=== PATIENT | female | born 1960 | race Caucasian/White ===

== ENCOUNTER 2017-01-03 14:22 | Observation (INO) ==
--- NOTE | 2017-01-03 14:56 | Emergency Department Note ---
Disposition Clinical Impression: Chest pain at rest, Unstable angina Disposition: Admitted As Inpatient Condition: Good Time of Disposition: 18:21 Chest Pain HPI - General Chief Complaint: ED Chest Pain Stated Complaint: Chest Pain Time Seen by Provider: 01/03/17 14:36 Source: patient Limitations: no limitations Vital Signs Reviewed: Yes Nursing Notes Reviewed: Yes - History of Present Illness HPI Narrative: Patient is a 56-year-old female with no prior cardiac history but an extensive family history for cardiac events on her father's side and presents today with chest pain 5/10 pressure-like with radiation up to the anterior portion of her throat bilaterally and intermittently. Patient states worsens with activity but now at rest. The patient states the stress test in the past years ago. Patient does not currently see a epidemiologist oriented she on any medications for hypertension or hyperlipidemia. Patient states she is a smoker of one pack a day reduced from 2 packs a day. Severity scale (1-10): 4 - Related Data Home Medications Medication Instructions Recorded Confirmed Aspirin 324 mg PO QAM 01/03/17 01/03/17 Allergies Allergy/AdvReac Type Severity Reaction Status Date / Time No Known Allergies Allergy Verified 01/03/17 14:27 Review of Systems: Patient denies fever, chills, vomiting, diarrhea, All systems ED: reviewed and negative except as stated. Review of Systems: As Per HPI Chest Pain PMH - Past Medical History Medical history: Reports: no medical history Psychiatric history: Reports: no psych history RATOPRINTER history: Reports: bilateral tubal ligation - Social History Smoking Status: Current every day smoker Alcohol use: Reports: none Drug use: Reports: none Physical Exam Vital Signs Temperature 98.1 F 01/03/17 14:23 Pulse Rate 88 01/03/17 14:23 Respiratory Rate 18 01/03/17 14:23 Blood Pressure 163/82 01/03/17 14:23 O2 Sat by Pulse Oximetry 96 01/03/17 14:23 Temperature 98.0 F 01/03/17 18:38 Pulse Rate 76 01/03/17 18:38 Respiratory Rate 16 01/03/17 18:38 Blood Pressure 181/88 01/03/17 18:38 O2 Sat by Pulse Oximetry 100 01/03/17 18:38 Oxygen Delivery Oxygen Delivery Room Air -General Appearance: Patient is a 56-year-old female who is alert and oriented 3 and in no acute distress distress. Patient currently dressing and gown and heading down to chest x-ray. Patient chooses to walk. -Neurological exam: Cranial nerves II-12 intact, no focal deficits observed, strength equal 5/5 bilaterally in upper and lower extremities. Negative loss of sensation - Head Head exam: atraumatic, normocephalic, normal inspection - Eye Eye exam: Present: normal appearance, PERRL, EOMI, negative for scleral icterus negative for conjunctival pallor - ENT ENT exam: normal exam, normal oropharynx, mucous membranes moist - Neck Neck exam: Present: normal inspection, full ROM, trachea midline, negative JVD - Chest Chest inspection: Present: Patient has bilateral equal rise and fall of chest wall. Non-tender to palpation. - Respiratory Respiratory exam: Clear to auscultation bilaterally without wheezes rales or rhonchi Cardiovascular Cardiovascular exam: Present: regular rate, normal rhythm, normal heart sounds, without murmurs rubs or gallops. - Abdominal Exam Abdominal exam: Present: soft, nondistended, Non-Tender light and deep palpation in all quadrants. Bowel sounds normoactive throughout all 4 quadrants. Negative for hyper or hyperresonance. - Extremities Exam Extremities exam: Present: normal inspection, full ROM - Back Exam Back exam: Present: normal inspection, full ROM. Absent: CVA tenderness (R), CVA tenderness (L) - Psychiatric Psychiatric exam: Present: normal affect, normal mood, pulses equal regular bilaterally at the radials and dorsal pedal - Skin Skin exam: Present: warm, dry, intact, normal color - General Limitations: no limitations General appearance: alert, in no apparent distress Course - Reevaluation(s) Reevaluation #1: Patient received aspirin and labs have been ordered at triage Time: 15:00 Reevaluation #2: She received nitroglycerin for chest pressure of 5/10. Time: 15:55 Reevaluation #3: Patient has reduction of pain after nitroglycerin. Patient is accepted the [place] for admittance for serial troponins and cardiology evaluation. - Consultations Consultation #1: Patient is accepted for admission by hospitalist Time: 18:21 Vital Signs Temperature 98.1 F 01/03/17 14:23 Pulse Rate 88 01/03/17 14:23 Respiratory Rate 18 01/03/17 14:23 Blood Pressure 163/82 01/03/17 14:23 O2 Sat by Pulse Oximetry 96 01/03/17 14:23 Temperature 98.0 F 01/03/17 18:38 Pulse Rate 76 01/03/17 18:38 Respiratory Rate 16 01/03/17 18:38 Blood Pressure 181/88 01/03/17 18:38 O2 Sat by Pulse Oximetry 100 01/03/17 18:38 Oxygen Delivery Oxygen Delivery Room Air Chest Pain - MDM Narrative Medical decision making narrative: Patient presents with intermittent chest pain for the past 3 weeks equates this chest pressure with radiation up to anterior neck bilaterally concerning for ACS /OK/aortic dissection with partial complaint of intermittent pain symptoms radiate from front to back and sharp in nature times. Patient's CBC and BMP and troponin negative for any up amounts at this time, patient is EKG shows nonspecific ST segments abnormalities but a underlying sinus rhythm with ventricular rate of 83 beats a minute these changes are new from previous EKG dated 12/08/2011. Patient has a heart score 5 placing her at an increased risk for adverse cardiac event. Discussed all the information patient states that she agrees with my assessment and plan for admission to the hospital for further evaluation. Patient is accepted for admission by hospitalist - Lab Data Lab results reviewed: Yes I reviewed the patient's lab results. Lab results narrative: Short CBC 01/03/17 Range/Units 15:00 WBC 9.5 (4.3-11.1) K/mcL Hgb 13.9 (11.5-15.4) g/dL Hct 42.5 (35.3-44.9) % Plt Count 249 (140-400) K/mcL Neutrophils # 5.3 (1.6-8.9) K/mcL BMP 01/03/17 Range/Units 15:00 Sodium 140 (136-145) mEq/L Potassium 4.2 (3.5-4.5) mEq/L Chloride 108 (98-109) mEq/L Carbon Dioxide 25 (19-29) mEq/L BUN 14 (7-20) mg/dL Creatinine 0.69 (0.57-1.11) mg/dL Glucose 98 (70-99) mg/dL Calcium 9.5 (8.6-10.8) mg/dL Cardiac Enzymes 01/03/17 Range/Units 15:00 Troponin I 0.00 (0-0.03) ng/mL Result diagrams: 01/03/17 15:00 01/03/17 15:00 Lab Results 01/03/17 01/03/17 01/03/17 Range/Units 15:00 15:00 15:00 WBC 9.5 (4.3-11.1) K/mcL RBC 4.55 (3.82-4.97) M/mcL Hgb 13.9 (11.5-15.4) g/dL Hct 42.5 (35.3-44.9) % MCV 93.4 (83.0-100.0) fL MCH 30.5 (28.0-33.3) pg MCHC 32.7 (31.6-35.5) g/dL RDW 14.0 (11.5-14.5) % Plt Count 249 (140-400) K/mcL MPV 9.4 (9.4-12.4) fL Immature Gran % 0.2 (0-4) % Seg Neutrophils % 56.2 % Lymphocytes % 33.8 % Monocytes % 8.0 % Eosinophils % 1.3 % Basophils % 0.5 % Neutrophils # 5.3 (1.6-8.9) K/mcL Lymphocytes # 3.2 (0.6-4.6) K/mcL Monocytes # 0.8 (0.0-1.3) K/mcL Eosinophils # 0.1 (0.0-0.6) K/mcL Basophils # 0.1 (0.0-0.2) K/mcL Sodium 140 (136-145) mEq/L Potassium 4.2 (3.5-4.5) mEq/L Chloride 108 (98-109) mEq/L Carbon Dioxide 25 (19-29) mEq/L BUN 14 (7-20) mg/dL Creatinine 0.69 (0.57-1.11) mg/dL Est GFR ( Amer) > 60 (> 60) Est GFR (Non-Af Amer) > 60 (> 60) BUN/Creatinine Ratio 20 (6-26) Glucose 98 (70-99) mg/dL Calculated Osmolality 290 (280-300) Calcium 9.5 (8.6-10.8) mg/dL Troponin I 0.00 (0-0.03) ng/mL - Radiology Data Radiology results reviewed: Yes I reviewed the patient's radiology results. Chest X-Ray 01/03/17 14:30 IMPRESSION: No acute process. D/ / Sara Garcia MD / Sara Garcia MD Interpreting Provider: Sara Garcia MD - EKG Data EKG attestation: Yes I reviewed and interpreted this EKG. EKG results narrative: EKG taken at 01/03/2017 at 1425 hrs. shows a sinus rhythm at a heart rate of 83 beats minute Heart Score - Score History: Moderately Suspicious EKG: Non Specific repolarisation Disturbance Age: 45-65 Risk Factors: Equal/Greater than 3 risk factor or history of atherosclerotic disease Troponin: Less than normal limit HEART Score Total: 5
[2017-01-03 15:11] LABS: Basophils # 0.1 K/mcL (0.0-0.2); Basophils % 0.5 %; Eosinophils # 0.1 K/mcL (0.0-0.6); Eosinophils % 1.3 %; Hematocrit 42.5 % (35.3-44.9); Hemoglobin 13.9 g/dL (11.5-15.4); Immature Granulocytes % 0.2 % (0-4); Lymphocytes # 3.2 K/mcL (0.6-4.6); Lymphocytes % 33.8 %; Mean Corpuscular HGB Conc 32.7 g/dL (31.6-35.5); Mean Corpuscular Hemoglobin 30.5 pg (28.0-33.3); Mean Corpuscular Volume 93.4 fL (83.0-100.0); Mean Platelet Volume 9.4 fL (9.4-12.4); Monocytes # 0.8 K/mcL (0.0-1.3); Neutrophils # 5.3 K/mcL (1.6-8.9); Platelet Count 249 K/mcL (140-400); Red Blood Count 4.55 M/mcL (3.82-4.97); Segmented Neutrophils % 56.2 %
[2017-01-03] MEDS ORDERED: Aspirin 81 MG TAB.CHEW PO STA (15:16)
[2017-01-03] MEDS ORDERED: 0.9 % Sodium Chloride 1,000 ML IVC ONE (15:17)
[2017-01-03 15:25] LABS: BUN/Creatinine Ratio 20 (6-26); Blood Urea Nitrogen 14 mg/dL (7-20); Calcium 9.5 mg/dL (8.6-10.8); Carbon Dioxide 25 mEq/L (19-29); Chloride 108 mEq/L (98-109); Glucose 98 mg/dL (70-99); Osmolality,Calculated 290 (280-300); Potassium 4.2 mEq/L (3.5-4.5); Sodium 140 mEq/L (136-145); eGFR For African Americans > 60 (> 60); eGFR For Non-African Americans > 60 (> 60)
--- NOTE | 2017-01-03 15:31 | Emergency Department Note ---
START Narrative - START START: I examined this patient and my medical decision-making was reviewed with the FILM PROCESSING SHIFT SUPERVISOR/PA/Advanced Practice Nurse/Resident Physician. I agree with the documented findings, disposition and treatment plan as described except to the extent set forth below. ED attending note: Patient seen with emergency medicine resident Dr. Mendosa. Please see a copy of his note for details of the H&P, evaluation, management and disposition of this patient. We independently had [id number] contact with the patient Briefly: A 56-year-old female smoker multiple risk factors comes in with chest pain. Last workup was 2006, nuclear stress test was okay per patient. Patient is currently uninsured and has not had any regular medical follow-up. Chest pain pressure from the front to the back. EKG shows new nonspecific changes. Troponin chest x-ray pending with admission anticipated. The vomiting 30 minutes critical care services to this patient. Aspirin ordered. Disposition pending
[2017-01-03] MEDS: Nitroglycerin 0.4 MG TAB.SUBL SL PRN ×2 (15:53→16:36)
[2017-01-03] MEDS ORDERED: Naloxone 0.4 MG/ML INJ IVP PRN (17:11)
[2017-01-03] MEDS ORDERED: *HR* Morphine 2 MG/ML SYRINGE IVP PRN (17:16)
[2017-01-03] MEDS ORDERED: *HR* OxyCODONE Immed Rel 5 MG TABLET PO PRN (17:16)
--- NOTE | 2017-01-03 17:25 | Internal Med History&Physical ---
Date of Encounter: 01/03/17 Time of Encounter: 17:23 Assessment and Plan (1) Tobacco abuse Current visit: Yes Status: Acute advised to cut down. will order nicotine patch for now. (2) Chest pain Current visit: Yes Status: Acute atypical chest pain. no specific risk factors other than signficant family history of heart attack. chest pain free at this time first trop negative no ishcmeic EKG changes will trend trop, nitro prn for chest pain will schedule exercise stress test for tomm if that is negative, may be dc. Qualifiers: Chest pain type: unspecified Qualified Code(s): R07.9 - Chest pain, unspecified Internal Medicine - H&P: HPI Chief complaint: chest pain Admitted From: Home Plans for Post Hospital Care: Home History of present illness: Ms. Wu is a 56 year old female with no past medical history reports that she came today due to chest pain that has been going on for the last week. she smokes 1 pack of cigarette a day and says that she is trying to cut down. she says that the chest pain comes along antime of the day, not related to exertion and sometimes feeels that she has abnormal heart beat. she denies any cough, fever, so, no limitation to walking. she reports that she had a stress test back in 2006 which she was told was negative she has extensive family h/o of heart attack. Past Med Surg Social Fam HX - Past Medical History Medical history: no medical history Psychiatric history: no psych history - Social History Smoking Status: Current every day smoker Smokeless Tobacco Status: No Alcohol use: none Drug use: none Internal Medicine - H&P: Meds Aspirin 324 mg PO QAM 01/03/17 [History] Allergies No Known Allergies Allergy (Verified 01/03/17 14:27) All Systems PM: A 10-system review of systems was performed and is negative for pertinent findings except as documented above in the HPI. - Breasts Breasts: as per HPI - Cardiovascular Cardiovascular ROS IM: as per HPI - Respiratory Respiratory: as per HPI - Gastrointestinal Gastrointestinal: as per HPI - Genitourinary Genitourinary: as per HPI Menstruation: as per HPI - Musculoskeletal Musculoskeletal ROS IM: as per HPI - Integumentary Integumentary IM: as per HPI - Neurological Neurological ROS: as per HPI - Psychiatric Psychiatric: as per HPI - Endocrine Endocrine IM: as per HPI - Hematologic/Lymphatic Hematologic/Lymphatic: as per HPI - Allergic/Immunologic Allergic/Immunologic: as per HPI - Constitutional Vitals: Temp Pulse Resp BP Pulse Ox 98.1 F 78 18 140/68 99 01/03/17 14:23 01/03/17 16:35 01/03/17 16:35 01/03/17 16:35 01/03/17 16:35 General appearance: Present: A&O X 3, no acute distress Exam: neck- supple chest- b/l clear, no added sounds CVS-s1 and s2, no mr/g abd-soft, non tender, bs are present ext- no edema neuro- no focal deficits. Internal Med - H&P Results - Labs CBC & Chem 7: 01/03/17 15:00 01/03/17 15:00
[2017-01-04 04:02] LABS: Basophils % 0.5 %; Eosinophils # 0.2 K/mcL (0.0-0.6); Hematocrit 40.7 % (35.3-44.9); Hemoglobin 13.3 g/dL (11.5-15.4); Immature Granulocytes % 0.2 % (0-4); Immature Platelets 2.7 % (1.1-6.1); Lymphocytes # 3.4 K/mcL (0.6-4.6); Lymphocytes % 40.8 %; Mean Corpuscular HGB Conc 32.7 g/dL (31.6-35.5); Mean Corpuscular Hemoglobin 30.1 pg (28.0-33.3); Mean Corpuscular Volume 92.1 fL (83.0-100.0); Mean Platelet Volume 9.4 fL (9.4-12.4); Monocytes # 0.6 K/mcL (0.0-1.3); Monocytes % 6.9 %; Neutrophils # 4.2 K/mcL (1.6-8.9); Platelet Count 267 K/mcL (140-400); Red Blood Count 4.42 M/mcL (3.82-4.97); Segmented Neutrophils % 49.6 %
[2017-01-04 04:17] LABS: BUN/Creatinine Ratio 14 (6-26); Blood Urea Nitrogen 9 mg/dL (7-20); Calcium 9.3 mg/dL (8.6-10.8); Carbon Dioxide 27 mEq/L (19-29); Chloride 109 mEq/L (98-109); Glucose 86 mg/dL (70-99); Osmolality,Calculated 292 (280-300); Potassium 4.1 mEq/L (3.5-4.5); Sodium 142 mEq/L (136-145); eGFR For African Americans > 60 (> 60); eGFR For Non-African Americans > 60 (> 60)
[2017-01-04 16:14] VITALS: BP 163/109
--- NOTE | 2017-01-04 18:59 | Discharge Summary ---
Date of Encounter: 01/04/17 Time of Encounter: 10:30 (patient left AMA immediately upon returning from stress test) - Discharge Diagnosis (1) Chest pain Priority: Primary Status: Acute Comments: This patient left AGAINST MEDICAL ADVICE shortly after returning from her stress test. She stated she was not willing to wait for the results. Chest x- ray negative. I did not examine this patient as she left before stress test was resulted. Stress test appears negative. Follow-up outpatient Qualifiers: Chest pain type: unspecified Qualified Code(s): R07.9 - Chest pain, unspecified (2) Tobacco abuse Priority: Secondary Status: Chronic - Discharge Medications Home Medications: Aspirin 324 mg PO QAM 01/03/17 [History] Allergies/Adverse Reactions: Allergies No Known Allergies Allergy (Verified 01/03/17 14:27) Procedures/tests Complete & Pending: Procedures Performed prior 72 hours Category Date Time Status SP exercise stress ECG Routine Y 01/04/17 Completed Date of admission: 01/03/17 17:05 Primary care physician: PCP NONE Discharging clinician: Gema Morse Anticipated date of discharge: 01/04/17 (AMA) - Patient Status Disposition: Left Against Medical Advice Condition: Fair Functional capacity at discharge: independent ambulation Overall status at discharge: patient is back to baseline - Discharge Instructions Follow Up With: NONE,PCP [Primary Care Provider] - - Diet and Activity Activity: increase activity as tolerated Diet: regular diet Hospital course: Ms. Wu is a 56 year old female with no past medical history other than one pack per day smoker. Patient presented to the emergency department with chief complaint of chest pain that had been going on for one week. Patient stating the chest pain comes along anytime of the day and is not related to exertion and sometimes she feels as if she has an abnormal heartbeat. She denies cough, fever, shortness of breath. Patient stating she had a negative stress test back in 2006. Workup in the emergency department unremarkable. Chest x-ray negative. Patient was admitted to the hospitalist service for further evaluation and management. Troponins negative 3. Exercise stress test appears unremarkable. Immediately after returning from her stress test, the patient demanded to leave. She was instructed to wait for the results of her stress test but she declined. She left AGAINST MEDICAL ADVICE. I did not personally examined this patient as she had left before her stress test was resulted. Recommend outpatient follow-up. I was going to notify her primary care provider however she does not have one listed in [facility]. ITS Impressions Chest X-Ray 01/03/17 14:30 IMPRESSION: No acute process. D/ / Sara Garcia MD / Sara Garcia MD Interpreting Provider: Sara Garcia MD Exercise stress impressions: Stress ECG was indeterminate for ischemia due to baseline ST-T wave abnormalities. Exercise capacity was fair. Normal hemodynamic response to exercise. No arrhythmias noted with stress. Patient had no chest pain with stress. - Time Spent with Patient Total time spent providing and/or coordinating discharge services: - Constitutional Vitals: Temp Pulse Resp BP Pulse Ox 98.0 F 73 14 163/109 96 01/04/17 10:43 01/04/17 10:43 01/04/17 10:43 01/04/17 10:43 01/04/17 10:43 Exam: i did not see this patient prior to AMA
--- NOTE | 2017-01-05 12:18 | Electrocardiograph Report ---
[address] [place], [place] [address] Test Date: 2017-01-03 Pat Name: Kori uW Department: 105 Room: 3B44 Gender: F Anesthesiology Medical Doctor: : 1960 Requested By: Riley Naqvi Order Number: [id number] Reading MD: Ashley Greenwood Measurements Intervals [place] Rate: 83 P: 51 AR: 128 QRS: 14 QRSD: 94 T: 56 QT: 334 QTc: 374 Interpretive Statements SINUS RHYTHM NONSPECIFIC ST & T-WAVE ABNORMALITY Electronically Signed On 01-05-2017 12:16:48 EDT by Ashley Greenwood
== END 2017-01-04 10:40 | disposition left against medical advice (07) ==
LOC: 3BNU 14:22 → EMEROO 14:22 → 3BNU 18:26
PROVIDERS: ADMIT Internal Medicine Endocrinology, Diabetes & Metabolism; ATTEND Nurse Practitioner Family